=== PATIENT | female | born 1970 | race Caucasian/White ===

== ENCOUNTER 2018-08-25 17:30 | Emergency (ER) | payer OTHER ==
[2018-08-25] MEDS ORDERED: Meropenem 1 GM/100 ML BAG ONE (18:35)
[2018-08-25 18:41] LABS: Absolute Lymphocytes (CBC) 2.3 K/uL (0.7-4.9); Absolute Monocytes 0.7 K/uL (0.1-1.3); Absolute Neutrophil 7.6 K/uL (1.8-8.0); Basophils % 0.4 % (0-1.3); Eosinophils % 3.4 % (0-4.4); Hematocrit 42.4 % (36.0-45.0); Lymphocytes % 20.9 % (15.3-44.8); MPV 10.6 fL (7.6-11.3); Monocytes % 6.1 % (3.3-12.3); RBC Red Blood Cell Count 4.57 M/uL (3.86-4.86)
[2018-08-25 18:52] LABS: Albumin 4.1 g/dL (3.4-5.0); Bilirubin Total 0.3 mg/dL (0.2-1.0); Protein, Total 7.9 g/dL (6.4-8.2)
--- NOTE | 2018-08-25 19:43 | RAD REPORT ---
EXAM DESCRIPTION: CT - Maxillofacial W/Cont - 08/25/2018 7:29 pm CLINICAL HISTORY: Right ear infection, right-sided facial pain COMPARISON: None. TECHNIQUE: During dynamic enhancement using nonionic IV contrast, axial 2 millimeter thick images ob tained. The CT scan was performed using dose optimization techniques as appropriate to a performed exam incl uding one or more of the following: Automated exposure control, adjustment of the mA and/or kV accord ing to patient size (this includes techniques or standardized protocols for targeted exams where dose is matched to indication/reason for exam) and use of iterative reconstruction technique. FINDINGS: Intracranial portion of the examination is unremarkable. No globe or orbital content abnor mality. No air-fluid level in the paranasal sinuses. There is patchy mucosal thickening in the ethmoi d air cells. No pharyngeal mucosal mass or asymmetry. Parapharyngeal fat is normal. No tonsillar or tongue base ab normality. Soft palate, epiglottis and laryngeal structures are normal. Parotid, submandibular glands are normal. No vascular abnormality seen. Left side mastoid air cells and middle ear are clear. No left-sided temporal bone abnormality. There is partial opacification of the right side mastoid air cells. There is complete opacification o f the middle ear on the right. No focal abnormality within the right-side external auditory canal. No bone destructive changes seen. Vestibule, cochlear and semi circular canals on the right have a norm al appearance. No abnormal lymphadenopathy in the face and upper neck. IMPRESSION: Complete opacification of the right middle ear with partial opacification of the mastoid air cells on the right. Findings are consistent with the history of otitis media. No bone destructive changes seen. Ossicles are normal. Remainder the examination is without significant or suspicious finding.
--- NOTE | 2018-08-25 20:07 | ER ---
Nurse's Notes [facility] Name: Reyna Yanez Age: 48 yrs Sex: Female : 1970 Arrival Date: 08/25/2018 Time: 17:34 Bed 20 Private MD: Diagnosis: Otitis externa;Pseudomonas (aeruginosa) (mallei) (pseudomallei) as the cause of diseases classified elsewhere Presentation: 08/25 17:53 Presenting complaint: Patient states: from PCP, is currently being treated for R ear hj infection, per lab results, it is positive for pseudomonas aeruginosa, for 3 weeks, but per pt, "im not getting any better, and i cant hear, i was told to come here for possible IV antibiotics"; reports fever;. Transition of care: patient was not received from another setting of care. Onset of symptoms was August 25, 2018. Risk Assessment: Do you want to hurt yourself or someone else? Patient reports no desire to harm self or others. Initial Sepsis Screen: Does the patient meet any 2 criteria? No. Patient's initial sepsis screen is negative. Does the patient have a suspected source of infection? No. Patient's initial sepsis screen is negative. Care prior to arrival: None. 17:53 Method Of Arrival: Ambulatory 17:53 Acuity: CRISTIANA 3 hj Triage Assessment: 18:02 General: Appears in no apparent distress. uncomfortable, Behavior is calm, cooperative, hj appropriate for age. Pain: Complains of pain in right ear. 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 - Social history:: Smoking status: Patient uses tobacco products, Patient/guardian denies using alcohol. - Ebola Screening: : Patient negative for fever greater than or equal to 101.5 degrees Fahrenheit, and additional compatible Ebola Virus Disease symptoms Patient denies exposure to infectious person Patient denies travel to an Ebola-affected area in the 21 days before illness onset. Screenin:02 Abuse screen: Denies threats or abuse. Denies injuries from another. Nutritional hj screening: No deficits noted. Tuberculosis screening: No symptoms or risk factors identified. Fall Risk None identified. Assessment: 17:53 General: Appears in no apparent distress. uncomfortable, Behavior is calm, cooperative, hj appropriate for age. Pain: Complains of pain in right ear. Neuro: Level of Consciousness is awake, alert, obeys commands, Oriented to person, place, time, situation, Appropriate for age. Cardiovascular: Capillary refill < 3 seconds Patient's skin is warm and dry. Respiratory: Airway is patent Respiratory effort is even, unlabored, Respiratory pattern is regular, symmetrical. GI: No signs and/or symptoms were reported involving the gastrointestinal system. : No signs and/or symptoms were reported regarding the genitourinary system. EENT: Reports pain in right ear. Derm: No signs and/or symptoms reported regarding the dermatologic system. Musculoskeletal: No signs and/or symptoms reported regarding the musculoskeletal system. 18:35 Reassessment: Patient and/or family updated on plan of care and expected duration. Pain hj level reassessed. Patient is alert, oriented x 3, equal unlabored respirations, skin warm/dry/pink. hospitalist in room for POC;. 18:52 Reassessment: Patient and/or family updated on plan of care and expected duration. Pain hj level reassessed. Patient is alert, oriented x 3, equal unlabored respirations, skin warm/dry/pink. IV meropenem running;. 20:24 Reassessment: Patient and/or family updated on plan of care and expected duration. Pain bb level reassessed. Patient is alert, oriented x 3, equal unlabored respirations, skin warm/dry/pink. Dr Simon at bedside to discuss findings and recommendations pt to be discharged home on RX for ear drops and follow-up with ENT pt verbalized understanding of and agrees to plan of care discharge instructions given pt ambulated with steady gait to exit. Vital Signs: 18:03 BP 108 / 60; Pulse 110; Resp 18; Temp 98.0(O); Pulse Ox 100% on R/A; Weight 49.44 kg; hj Height 5 ft. 0 in. (152.40 cm); 18:35 BP 110 / 65; Pulse 98; Resp 18; Pulse Ox 100% on R/A; hj 18:52 BP 120 / 67; Pulse 86; Resp 18; Pulse Ox 100% on R/A; hj 19:40 BP 117 / 74; Pulse 84; Resp 18; Temp 98.1(O); Pulse Ox 98% on R/A; tl2 18:03 Body Mass Index 21.29 (49.44 kg, 152.40 cm) ED Course: 17:34 Patient arrived in ED. mr 17:47 Roland Simon MD is Attending Physician. ps1 17:52 Dick White RN is Primary Nurse. hj 17:57 Triage completed. hj 18:02 Arm band placed on right wrist. hj 18:03 Patient has correct armband on for positive identification. Bed in low position. Call light in reach. Side rails up X 1. 18:15 Initial lab(s) drawn, by me, sent to lab. Inserted saline lock: 22 gauge in right antecubital area, using aseptic technique. Blood collected. 18:18 CMP Sent. hj 18:18 CBC with Diff Sent. hj 18:22 Radiology exam delayed due to lab results not completed at this time. (BUN/Creatinine). vm2 19:29 CT Maxillofacial W/cont In Process Unspecified. EDMS 20:06 Salome Monroy MD is Referral Physician. ps1 20:26 No provider procedures requiring assistance completed. IV discontinued, intact, bb bleeding controlled, No redness/swelling at site. Pressure dressing applied. Administered Medications: 18:24 Drug: Meropenem 1 grams Route: IV; Rate: bolus; Site: right antecubital; hj 18:54 Follow up: IV Status: Completed infusion; IV Intake: 100ml hj Intake: 18:54 IV: 100ml; Total: 100ml. Outcome: 20:07 Discharge ordered by . ps1 20:26 Discharged to home ambulatory. bb 20:26 Condition: stable 20:26 Discharge instructions given to patient, Instructed on discharge instructions, follow up and referral plans. medication usage, Demonstrated understanding of instructions, follow-up care, medications, Prescriptions given X 1. 20:26 Patient left the ED. bb Signatures: Dispatcher [employer] Maddie Meyer Brenda, RN RN Dick Asher RN RN hj Knox, Taylor, RN RN tl2 Kelli Saab2 Roland Simon MD MD ps1
--- NOTE | 2018-08-25 20:07 | EDPHYS ---
Physician Documentation [facility] Name: Reyna Yanez Age: 48 yrs Sex: Female : 1970 Arrival Date: 08/25/2018 Time: 17:34 Bed 20 Private MD: ED Physician Roland Simon HPI: 08/25 19:57 This 48 yrs old Female presents to ER via Ambulatory with complaints of right ps1 ear pseudomonas infection. 19:57 patient presenting with 3 weeks of pseudomonal ear infection that was treated with oral ps1 antibiotics. Patient has otitis externa/media and states that she still has symptoms. She was sent in for evaluation for the necessity for IV antibiotics and PICC placement. She has no comorbid conditions that would cause her to be immunocompromised. Pain is rated as moderate and has decreased hearing for 2 weeks. . 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 - Social history:: Smoking status: Patient uses tobacco products, Patient/guardian denies using alcohol. - Ebola Screening: : Patient negative for fever greater than or equal to 101.5 degrees Fahrenheit, and additional compatible Ebola Virus Disease symptoms Patient denies exposure to infectious person Patient denies travel to an Ebola-affected area in the 21 days before illness onset. ROS: 19:57 Constitutional: Negative for fever, chills, and weight loss, Eyes: Negative for injury, ps1 pain, redness, and discharge, Cardiovascular: Negative for chest pain, palpitations, and edema, Respiratory: Negative for shortness of breath, cough, wheezing, and pleuritic chest pain, Abdomen/GI: Negative for abdominal pain, nausea, vomiting, diarrhea, and constipation, MS/Extremity: Negative for injury and deformity, Skin: Negative for injury, rash, and discoloration, Neuro: Negative for headache, weakness, numbness, tingling, and seizure. 19:57 ENT: Positive for ear pain, hearing loss. Exam: 20:02 Constitutional: This is a well developed, well nourished patient who is awake, alert, ps1 and in no acute distress. Head/Face: Normocephalic, atraumatic. Eyes: Pupils equal round and reactive to light, extra-ocular motions intact. Lids and lashes normal. Conjunctiva and sclera are non-icteric and not injected. Chest/axilla: Normal chest wall appearance and motion. Nontender with no deformity. No lesions are appreciated. Cardiovascular: Regular rate and rhythm. No gallops, murmurs, or rubs. Normal PMI, no JVD. No pulse deficits. Respiratory: Lungs have equal breath sounds bilaterally, clear to auscultation and percussion. No rales, rhonchi or wheezes noted. No increased work of breathing, no retractions or nasal flaring. Abdomen/GI: Soft, non-tender, with normal bowel sounds. No distension or tympany. No guarding or rebound. No evidence of tenderness throughout. Skin: Warm, dry with normal turgor. Normal color with no rashes, no lesions, and no evidence of cellulitis. MS/ Extremity: Pulses equal, no cyanosis. Neurovascular intact. Full, normal range of motion. Neuro: Awake and alert, GCS 15, oriented to person, place, time, and situation. Cranial nerves II-XII grossly intact. Sensory grossly intact. 20:02 ENT: Ear canal(s): no acute changes, erythema, that is minimal, foreign body, is not appreciated, in the right external ear canal, purulent discharge, is not appreciated. Vital Signs: 18:03 BP 108 / 60; Pulse 110; Resp 18; Temp 98.0(O); Pulse Ox 100% on R/A; Weight 49.44 kg; hj Height 5 ft. 0 in. (152.40 cm); 18:35 BP 110 / 65; Pulse 98; Resp 18; Pulse Ox 100% on R/A; hj 18:52 BP 120 / 67; Pulse 86; Resp 18; Pulse Ox 100% on R/A; hj 19:40 BP 117 / 74; Pulse 84; Resp 18; Temp 98.1(O); Pulse Ox 98% on R/A; tl2 18:03 Body Mass Index 21.29 (49.44 kg, 152.40 cm) MDM: 18:24 Patient medically screened. ps1 20:03 Data reviewed: vital signs, nurses notes, lab test result(s), radiologic studies, CT ps1 scan, and as a result, I will discharge patient. ED course: patient does not have mastoiditis. Was given IV Merrem as this was the original POC for "failed OP therapy" for pseudomonas with instructions on labs brought in. Patient has not had otic abx. Pt to be discharged on cipro otic 7 days. 08/25 18:05 Order name: CBC with Diff; Complete Time: 18:48 ps1 08/25 18:05 Order name: CMP; Complete Time: 19:02 ps1 08/25 18:13 Order name: CT Maxillofacial W/cont; Complete Time: 19:49 ps1 Administered Medications: 18:24 Drug: Meropenem 1 grams Route: IV; Rate: bolus; Site: right antecubital; hj 18:54 Follow up: IV Status: Completed infusion; IV Intake: 100ml Disposition: 08/25/18 20:07 Discharged to Home. Impression: Otitis externa, Pseudomonas (aeruginosa) (mallei) (pseudomallei) as the cause of diseases classified elsewhere. - Condition is Stable. - Discharge Instructions: Otitis Externa. - Prescriptions for Cipro HC 0.2- 1 % Otic Drops - instill 3 drop by OTIC route every 12 hours for 7 days; 10 milliliter. - Medication Reconciliation Form, Thank You Letter, Antibiotic Education, Prescription Opioid Use form. - Follow up: Salome Monroy MD; When: 48 Hours; Reason: Recheck today's complaints, Continuance of care, Re-evaluation by your physician. - Problem is an acute exacerbation. - Symptoms are unchanged. Signatures: Dispatcher [employer] EDMS Samara Lai RN RN bb Joaquin, Henry, RN RN hj Singer, Phillip, MD MD ps1 Corrections: (The following items were deleted from the chart) 20:26 20:07 08/25/2018 20:07 Discharged to Home. Impression: Otitis externa; Pseudomonas bb (aeruginosa) (mallei) (pseudomallei) as the cause of diseases classified elsewhere. Condition is Stable. Forms are Medication Reconciliation Form, Thank You Letter, Antibiotic Education, Prescription Opioid Use. Follow up: Salome Monroy; When: 48 Hours; Reason: Recheck today's complaints, Continuance of care, Re-evaluation by your physician. Problem is an acute exacerbation. Symptoms are unchanged. ps1
== END 2018-08-25 20:26 | disposition home or self-care (01) ==
LOC: ER 17:30
DX: H60.21 Malignant otitis externa, right ear (principal); E03.9 Hypothyroidism, unspecified; E78.5 Hyperlipidemia, unspecified; G25.81 Restless legs syndrome; Z88.6 Allergy status to analgesic agent
CPT/HCPCS: 36415; 70487; 80053; 85025; 96365; 99284; J2185; Q9967

== ENCOUNTER 2019-05-03 15:00 | Observation (INO) | payer OTHER ==
--- OUTSIDE RECORDS SUMMARY | 2019-05-03 15:07 | XMS REPORT ---
:1970 [facility] Address [address] [place] [address] [address] [place] [address] Care Team Providers Name Role Phone Unavailable Unavailable Unavailable Problems This patient has no known problems. Allergies, Adverse Reactions, Alerts This patient has no known allergies or adverse reactions. Medications This patient has no known medications. Encounters Start End Encounter Admission Attending Care Care Encounter Date/Time Date/Time Type Type Clinicians Facility Department ID 2018-12-02 2018-12-02 Outpatient [id number] 07:05:00 07:05:00
--- OUTSIDE RECORDS SUMMARY | 2019-05-03 15:29 | XMS REPORT ---
:1970 [facility] Address [address] [place] [address] [address]. [address] [place] [address] Care Team Providers Name Role Phone Unavailable [...]
[2019-05-03 16:13] VITALS: BMI 23.2
[2019-05-03 17:15] LABS: Absolute Lymphocytes (CBC) 2.1 K/uL (0.7-4.9); Basophils % 0.6 % (0-1.3); Hematocrit 38.2 % (36.0-45.0); Lymphocytes % 30.1 % (15.3-44.8); MPV 9.1 fL (7.6-11.3)
[2019-05-03 17:27] LABS: Protime INR 1.06
[2019-05-03 17:55] LABS: Bilirubin Direct 0.2 mg/dL (0-0.2); Bilirubin Total 0.6 mg/dL (0.2-1.0); Magnesium 2.3 mg/dL (1.8-2.4); Phosphorus 3.8 mg/dL (2.5-4.9); Potassium 3.6 mmol/L (3.5-5.1); Protein, Total 7.6 g/dL (6.4-8.2)
[2019-05-03 17:59] LABS: Thyroid Stimulating Hormone 5.01 uIU/mL (0.360-3.740)
[2019-05-03 18:44] LABS: Urine Appearance CLEAR; Urine Bilirubin NEGATIVE (NEG); Urine Blood NEGATIVE (NEG); Urine Color YELLOW; Urine Glucose NEGATIVE (NEG); Urine Protein NEGATIVE (NEG); Urine Urobilinogen 0.2 mg/dL (0.2-1.0)
[2019-05-03 18:45] LABS: Urine Microscopic Reflex NO UMIC
[2019-05-03] MEDS ORDERED: ACETAMINOPHEN 325 MG TABLET PO PRN (20:01)
[2019-05-03] MEDS ORDERED: ONDANSETRON 4 MG (ODT) TAB PO PRN (20:08)
[2019-05-03] MEDS ORDERED: SODIUM CHLORIDE 0.9% 10ML INJ IV PRN (20:08)
[2019-05-03] MEDS ORDERED: LOPERAMIDE HCL 2 MG CAPSULE PO PRN (20:08)
[2019-05-03] MEDS ORDERED: POLYETHYL GLY 3350 17 GM/DOSE PO PRN (20:08)
[2019-05-03] MEDS ORDERED: DIPHENHYDRAMINE 25 MG TAB/CAP PO PRN (20:08)
--- NOTE | 2019-05-03 20:47 | RAD REPORT ---
EXAM DESCRIPTION: CTAbdomen Pelvis W Contrast - 05/03/2019 8:41 pm CLINICAL HISTORY: Abdominal pain. abd pain; n/v COMPARISON: No comparisons TECHNIQUE: Biphasic CT imaging of the abdomen and pelvis was performed with 100 ml non-ionic IV cont rast. All CT scans are performed using dose optimization technique as appropriate and may include automated exposure control or mA/KV adjustment according to patient size. FINDINGS: The lung bases are clear. Mild diffuse fatty liver is seen. Cholecystectomy clips are noted. The spleen, pancreas, adrenal glan ds and kidneys are within normal limits. No bowel obstruction, free air, free fluid or abscess. The appendix is normal. No evidence of signi ficant lymphadenopathy. No suspicious bony findings. IMPRESSION: No acute intra-abdominal or pelvic finding. Mild diffuse fatty liver.
[2019-05-03] MEDS ORDERED: CLIDINIUM/CHLORDIAZEPOX 1 CAP PO PRN (20:59)
[2019-05-03] MEDS: SUMATRIPTAN SUCCI 50 MG TAB PO SCH (21:00)
[2019-05-03] MEDS ORDERED: GABAPENTIN 100 MG CAP PO SCH (21:00)
[2019-05-03] MEDS ORDERED: LORazepam 2 MG/ML VIAL IV SCH (21:00)
[2019-05-03] MEDS ORDERED: ATORVASTATIN 80 MG TAB PO SCH (21:00)
--- NOTE | 2019-05-03 21:18 | RAD REPORT ---
EXAM DESCRIPTION: RAD - Chest Pa And Lat (2 Views) - 05/03/2019 8:51 pm CLINICAL HISTORY: abd pain Chest pain. COMPARISON: Abdomen Pelvis W Contrast dated 05/03/2019 FINDINGS: The lungs are clear. The heart is normal in size. No displaced fractures. IMPRESSION: No acute or concerning finding suspected.
[2019-05-03] MEDS: ONDANSETRON 4 MG/2 ML VIAL IV PRN (21:22)
[2019-05-03] MEDS: NACHLORIDE 0.45% 1,000 ML IV SCH (21:22)
[2019-05-03] MEDS: PANTOPRAZOLE 40 MG INJ IVP SCH (23:55)
[2019-05-03] MEDS: PROMETHAZINE INJ 25 MG/ML AMP IV PRN (23:56)
[2019-05-04] MEDS: PROMETHAZINE INJ 25 MG/ML AMP IV PRN (05:03)
[2019-05-04 05:55] LABS: Basophils % 0.5 % (0-1.3); Hematocrit 34.7 % (36.0-45.0); Lymphocytes % 26.1 % (15.3-44.8); MPV 9.5 fL (7.6-11.3); RBC Red Blood Cell Count 3.86 M/uL (3.86-4.86)
[2019-05-04] MEDS: SUMATRIPTAN SUCCI 50 MG TAB PO SCH ×2 (06:14→21:00)
[2019-05-04 06:33] LABS: Magnesium 2.4 mg/dL (1.8-2.4); Potassium 3.7 mmol/L (3.5-5.1)
[2019-05-04] MEDS ORDERED: KCL 20 MEQ/100 mL IVPB 20 MEQ/100 ML BAG IV SCH (07:00)
[2019-05-04] MEDS ORDERED: PROPRANOLOL HCL 10 MG TAB PO SCH (07:30)
[2019-05-04] MEDS: ENOXAPARIN 40 MG/0.4 ML SQ SCH (08:19)
[2019-05-04] MEDS: PANTOPRAZOLE 40 MG INJ IVP SCH (08:19)
[2019-05-04] MEDS: FLUTICASONE PROPIONATE NAS SCH (09:00)
[2019-05-04] MEDS: NACHLORIDE 0.45% 1,000 ML IV SCH (11:04)
[2019-05-04] MEDS: ONDANSETRON 4 MG/2 ML VIAL IV PRN ×2 (12:23→21:30)
[2019-05-04 14:54] LABS: Barbiturates NEGATIVE (NEGATIVE); Benzodiazepines NEGATIVE (NEGATIVE); Cocaine NEGATIVE (NEGATIVE); METHAMPHETAM NEGATIVE (NEGATIVE); Methadone NEGATIVE (NEGATIVE); Opiates NEGATIVE (NEGATIVE); Phencyclidine NEGATIVE (NEGATIVE); THC Cannibis NEGATIVE (NEGATIVE)
[2019-05-04 15:17] VITALS: O2SAT 97
--- NOTE | 2019-05-04 15:56 | EKG ---
Test Date: 2019-05-03 Test Time: 21:03:19 Plier Worker: RT MEASUREMENT RESULTS: Intervals: Rate: 81 LA: 160 QRSD: 72 QT: 358 QTc: 415 Cody: P: 79 LA: 160 QRS: 36 T: 43 INTERPRETIVE STATEMENTS: Normal sinus rhythm Normal ECG No previous ECG available for comparison Electronically Signed On 05-04-19 15:52:13 OIL AND GAS RECRUITER by Zachariah Flowers
[2019-05-04] MEDS: SUCRALFATE 1 GM TABLET PO SCH ×2 (17:00→21:00)
[2019-05-04] MEDS ORDERED: GABAPENTIN 100 MG CAP PO SCH (21:00)
[2019-05-04] MEDS ORDERED: ATORVASTATIN 80 MG TAB PO SCH (21:00)
[2019-05-04] MEDS: CHOLESTYRAMINE/ASP 4 GM/PKT PO SCH (21:43)
--- NOTE | 2019-05-05 00:09 | PN ---
Subjective: Ms. Yanez is able to tolerate liquids. She still has low-grade fever and diarrhea a nd vomiting. Physical Examination: Vital Signs: Blood pressure 117/67, temperature 98.2, temperature 99.4. Chest: Clear. Heart: Regular. Abdomen: No guarding, no rebound, no rigidity. Assessment And Plan: Unspecified etiology for persistent nausea, vomiting, bloating, and diarrhea. Inflammatory bowel syndrome is a possibility, but she has a fever with this episode, which I suspect she probably has some secondary pathology. Dr. Gonsalves is working on it now more extensive than carole delma. She already had EGD and colonoscopy performed. She is awaiting for a PillCam. She had a CT sc an of abdomen, which was negative. Her lab work has been followed by Dr. Gonsalves for ovarian inflam matory disease. Prognosis is overall fair. CANDACE/MODL Voice ID: [id number] Report ID: [id number]
[2019-05-05] MEDS: NACHLORIDE 0.45% 1,000 ML IV SCH ×2 (02:40→12:33)
[2019-05-05 06:17] LABS: Absolute Lymphocytes (CBC) 1.7 K/uL (0.7-4.9); Basophils % 0.4 % (0-1.3); Hematocrit 33.9 % (36.0-45.0); Lymphocytes % 31.1 % (15.3-44.8); MPV 9.7 fL (7.6-11.3); RBC Red Blood Cell Count 3.75 M/uL (3.86-4.86)
[2019-05-05 06:31] LABS: Magnesium 2.3 mg/dL (1.8-2.4); Potassium 3.8 mmol/L (3.5-5.1)
--- NOTE | 2019-05-05 08:09 | RAD REPORT ---
EXAM DESCRIPTION: MRICholangiogram05/04/2019 8:47 pm CLINICAL HISTORY: Abdominal pain COMPARISON: May 03, 2019 cat scan TECHNIQUE: Magnetic resonance cholangiogram was performed.3D MIP reconstruction performed FINDINGS: Cholecystectomy Mild prominence of the biliary tree. A filling defect is not seen Pancreatic duct is normal caliber IMPRESSION: Mild prominence of the biliary tree presumably is physiologic in this patient status pos t cholecystectomy
[2019-05-05] MEDS: ENOXAPARIN 40 MG/0.4 ML SQ SCH (08:43)
[2019-05-05] MEDS: ONDANSETRON 4 MG/2 ML VIAL IV PRN ×2 (08:44→16:03)
[2019-05-05] MEDS: SUMATRIPTAN SUCCI 50 MG TAB PO SCH (08:44)
[2019-05-05] MEDS: SUCRALFATE 1 GM TABLET PO SCH ×3 (08:44→16:03)
[2019-05-05] MEDS: PROPRANOLOL HCL 10 MG TAB PO SCH ×2 (08:45→16:04)
[2019-05-05] MEDS: FLUTICASONE PROPIONATE NAS SCH ×2 (08:45→09:00)
[2019-05-05] MEDS ORDERED: POTASSIUM CL SA 10 MEQ TAB PO ONE (09:00)
[2019-05-05] MEDS: CHOLESTYRAMINE/ASP 4 GM/PKT PO SCH ×2 (09:54→16:03)
[2019-05-05] MEDS: PANTOPRAZOLE 40 MG INJ IVP SCH (09:54)
[2019-05-05] MEDS: PROMETHAZINE INJ 25 MG/ML AMP IV PRN (12:33)
[2019-05-05 17:52] VITALS: BP 97/53; TEMP 99
--- NOTE | 2019-05-06 04:50 | DS ---
Date of Discharge: 05/05/2019 Final Diagnoses: Diffuse abdominal pain, bloating, nausea and vomiting of unclear etiology, possible irritable bowel syndrome or cyst. Hospital Course: Patient is a 48-year-old lady who has significant bloating of abdominal area, but C T scan showed negative findings. There were no obvious positive findings there. The patient had an MRCP done that was negative. We also did extensive amount of blood work ordered by Dr. Gonsalves and myself for inflammatory disease of any kind and most of the blood work report is pending at time of d crescencio. Given her Librax to control her symptoms, which also controls all the symptoms from irrita ble bowel syndrome because she is a very anxious lady and she might have component of IBS giving rise to the symptoms. Discharge Condition: Stable. She still vomits off and on. Her lab work, which has been sent out to reference lab includes gastrin level, level of porphyria, urinary testing for porphyria. She will b e also getting a capsule endoscopy done on an outpatient basis at Dr. Gonsalves's office. The patient's condition is stable. Discharge with followup in office and Dr. Gonsalves office. ONOFRED/MODL Voice ID: [id number] Report ID: [id number]
== END 2019-05-05 18:23 | disposition home or self-care (01) ==
LOC: UNDOADMOB 15:00 → 2ND 15:00
PROVIDERS: ADMIT Internal Medicine; ATTEND Internal Medicine
DX: R10.9 Unspecified abdominal pain (principal); R14.0 Abdominal distension (gaseous); R11.2 Nausea with vomiting, unspecified; R11.10 Vomiting, unspecified
CPT/HCPCS: 93005; 87088; 85025 ×3; 87086; 80048 ×3; 36415 ×3; 82150; 83735 ×3; 84100; 85610; 80076; 80307 ×8; 83605; 85730; 84443; 81003; 84439; 82607; 83690; 84145; 82306; 82941; 74177; 71046; 74181; Q9967; J2550 ×3; C9113 ×3; J1650 ×2; J2405 ×5; G0378 ×4